=== PATIENT | female | born 1995 | race Caucasian/White ===

== ENCOUNTER 2018-06-18 12:39 | Emergency (ER) | payer OTHER ==
--- NOTE | 2018-06-18 13:50 | CR ---
Nasal bone: Three views of the nasal bone were obtained. Comparison: No prior nasal bone study. Fracture is identified within the distal nasal bone. No significant displacement is seen on this study. No additional bony abnormality is seen. Mild mucosal thickening is seen within the right maxillary sinus. Impression: 1. Distal nasal bone fracture as noted above. 2. Mild mucosal thickening is seen within the right maxillary sinus possibly chronic. Diagnostic code #3
--- NOTE | 2018-06-18 14:02 | EDM.PDOC ---
ED HPI GENERAL MEDICAL PROBLEM - General Chief Complaint: ENT Problem Stated Complaint: NOSE INJURY Time Seen by Provider: 06/18/18 12:49 Source of Information: Reports: Patient History Limitations: Reports: No Limitations - History of Present Illness INITIAL COMMENTS - FREE TEXT/NARRATIVE: The patient presents with a nose injury. She was getting ready for work today and her 40 pound black lab jumped off of the bed and hit her in the nose. She has an abrasion to the bridge of the nose. She had bleeding from her nostrils. She had no LOC. She has no vision changes. Onset: Sudden Duration: Minutes: Location: Reports: Face Quality: Reports: Sharp Severity: Moderate Improves with: Reports: None Worsens with: Reports: None Associated Symptoms: Reports: No Other Symptoms Nose Pain Score (Numeric/FACES): 9 - Related Data Allergies Allergy/AdvReac Type Severity Reaction Status Date / Time No Known Allergies Allergy Verified 06/18/18 12:53 Home Meds: Home Meds Cephalexin [Keflex] 500 mg PO TID #21 capsule 06/18/18 [Rx] PNV95/Ferrous Fumarate/FA [ Tablet] 1 tab PO DAILY 06/18/18 [History] Past Medical History Cardiovascular History: Reports: Arrhythmia, Other (See Below) Other Cardiovascular History: had holter monitor and had PVC'S - Past Surgical History HEENT Surgical History: Reports: Oral Surgery Social & Family History - Tobacco Use Smoking Status *Q: Never Smoker - Caffeine Use Caffeine Use: Reports: Coffee, Energy Drinks, Soda, Tea - Recreational Drug Use Recreational Drug Use: No ED ROS ENT - Review of Systems Review Of Systems: See Below Constitutional: Reports: No Symptoms HEENT: Reports: Other (Nose pain and swelling with an abrasion) Respiratory: Reports: No Symptoms Cardiovascular: Reports: No Symptoms Endocrine: Reports: No Symptoms GI/Abdominal: Reports: No Symptoms ED EXAM, ENT - Physical Exam Exam: See Below Exam Limited By: No Limitations General Appearance: Alert, No Apparent Distress Eye Exam: Bilateral Eye: EOMI Ears: Normal External Exam Nose: Other (Abrasion to the bridge of the nose with no active bleedin from each nostril. Edema to the bridge of the nose.) Head: Normocephalic Neck: Normal Inspection Respiratory/Chest: No Respiratory Distress, Lungs Clear, Normal Breath Sounds Cardiovascular: Regular Rate, Rhythm, No Edema, No Murmur GI/Abdominal: Soft, Non-Tender, No Organomegaly, No Mass Course - Vital Signs Last Recorded V/S: Last Vital Signs Temp 99.2 F 06/18/18 12:49 Pulse 106 H 06/18/18 12:49 Resp 20 06/18/18 12:49 BP 113/67 06/18/18 12:49 Pulse Ox 100 06/18/18 12:49 - Re-Assessments/Exams Free Text/Narrative Re-Assessment/Exam: 06/18/18 13:59 The x-ray shows a fracture. She had some bleeding from her nostrils so I am worried about an open fracture. I will get her on some keflex. Departure - Departure Time of Disposition: 14:10 Disposition: Home, Self-Care 01 Condition: Good Clinical Impression: Nasal bone fracture Qualifiers: Encounter type: initial encounter Fracture type: open Qualified Code(s): S02.2XXB - Fracture of nasal bones, initial encounter for open fracture - Discharge Information *PRESCRIPTION DRUG MONITORING PROGRAM REVIEWED*: Not Applicable *COPY OF PRESCRIPTION DRUG MONITORING REPORT IN PATIENT JERRI: Not Applicable Prescriptions: Cephalexin [Keflex] 500 mg PO TID #21 capsule Referrals: PCP,None [Primary Care Provider] - Julito Browne MD [Ordering Only Provider] - 1 Week Additional Instructions: Ice your nose for 15 minutes 3 times per day for 2 days. Take tylenol or motrin for pain. Take the keflex 3 times per day for 3 days. Follow up with Dr Browne if your nose does not look right after the swelling is down. Please return if you are worse.
== END 2018-06-18 14:15 | disposition home or self-care (01) ==
LOC: JD.ED 12:39
DX: S02.2XXB Fracture of nasal bones, initial encounter for open fracture (principal); W54.1XXA Struck by dog, initial encounter
CPT/HCPCS: 70160; 70160-26; 99283; 99283-25